=== PATIENT | male | born 1935 | race Caucasian/White ===

== ENCOUNTER → 2021-12-28 | Outpatient (CLI) | payer MEDICARE ==
[~2021-12-28] MED LIST: ACET-2247 PO; ATOR10TA69 PO; BETA1TAB18 PO; CELE200 PO; DILT120C47 PO; FERR-82 PO; FERR324T4 PO; FINA5TAB41 PO; FOLI0.8T3 PO; HYDR12.530 PO; MULT-1289 PO; OLME40TA18 PO; OXYC5 PO; PREG25 PO; REGADENOSON 0.4 MG/5 ML PF SYG IVP SCH; RIVA20TA PO; TERA10CA4 PO
== END | disposition home or self-care (01) ==
LOC: SHCH 08:22
PROVIDERS: ATTEND Internal Medicine Cardiovascular Disease
DX: I10 Essential (primary) hypertension (principal); R94.31 Abnormal electrocardiogram [ECG] [EKG]
CPT/HCPCS: 78452; 93017; 96374; A9500 ×2; J2785

== ENCOUNTER 2023-03-22 17:29 | Observation (INO) | payer MEDICARE ==
[~2023-03-22] VITALS: Ht 182.9 cm; Wt 105.2 kg
[~2023-03-22 17:29] MED LIST changes: -REGADENOSON 0.4 MG/5 ML PF SYG IVP SCH
[2023-03-22] MEDS ORDERED: DILTIAZEM 25MG INJ IVP ONE ×2 (18:00→19:00)
[2023-03-22 18:19] LABS: BASOPHILS % (AUTO) 0.4 % (0.0-5.0); EOSINOPHILS % (AUTO) 2.6 % (0.0-8.0); HEMATOCRIT 37.7 % (42-54); LYMPHOCYTES % (AUTO) 32.9 % (21.0-51.0); MEAN CORPUSCULAR HEMOGLOBIN 30.6 pg (27.0-33.0); MEAN CORPUSCULAR HGB CONC 33.7 g/dL (32.0-36.0); MEAN CORPUSCULAR VOLUME 90.8 fL (79-99); MONOCYTES % (AUTO) 11.4 % (3.0-13.0); NEUTROPHILS % (AUTO) 52.5 % (40.0-77.0); PLATELET COUNT (AUTO) 148 K/uL (130-400); RED BLOOD CELL COUNT(AUTO) 4.15 MIL/uL (4.50-6.20); RED CELL DISTRIBUTION WIDTH 14.4 % (11.0-15.5); WHITE BLOOD COUNT (AUTO) 5.1 K/uL (4.8-10.8)
[2023-03-22 18:36] LABS: ALBUMIN 3.2 g/dL (3.5-5.0); MAGNESIUM 1.9 mg/dL (1.80-2.40); POTASSIUM 4.3 mmol/L (3.5-5.1)
[2023-03-22 18:40] LABS: INR 1.06 (0.85-1.15); PROTHROMBIN TIME 11.5 SEC (9.6-11.6)
[2023-03-22 18:48] LABS: B-TYPE NATRIURETIC PEPTIDE 568 pg/mL (0-100)
[2023-03-22] MEDS ORDERED: ACETAMINOPHEN 325 MG TAB PO PRN (19:00)
[2023-03-22] MEDS ORDERED: IPRATROPIUM 0.5 MG/2.5 ML INH IH PRN (19:00)
[2023-03-22] MEDS ORDERED: HYDRALAZINE 20MG/ML VIAL IV PRN (19:00)
[2023-03-22] MEDS ORDERED: ONDANSETRON 4MG INJ IVP PRN (19:00)
[2023-03-22] MEDS ORDERED: CLONIDINE HCL 0.1 MG TABLET PO PRN (19:00)
[2023-03-22] MEDS ORDERED: LACTULOSE 20 GM/30 ML UDCUP PO PRN (19:00)
[2023-03-22] MEDS ORDERED: DILTIAZEM 125MG+100 ML NS 125 ML IV SCH (19:00)
[2023-03-22 19:24] LABS: PARTIAL THROMBOPLASTIN TIME 31.1 SEC (26.3-35.5)
[2023-03-22] MEDS: DOCUSATE SODIUM 100 MG CAP PO SCH (20:40)
[2023-03-22] MEDS ORDERED: IOHEXOL-350 75 ML VIAL IV ONE (20:46)
[2023-03-22] MEDS ORDERED: TERAZOSIN 5MG CAP PO SCH (21:00)
[2023-03-22] MEDS ORDERED: FINASTERIDE 5 MG TABLET PO SCH (21:00)
[2023-03-22 23:36] VITALS: BP 121/86
[2023-03-22] MEDS ORDERED: HYDR25TA PO (23:44)
[2023-03-22] MEDS ORDERED: MAGN250C PO (23:44)
[2023-03-22] MEDS ORDERED: IRON18TA PO (23:44)
[2023-03-22] MEDS ORDERED: FEXO-263 PO (23:44)
[2023-03-22] MEDS ORDERED: LOSA100T59 PO (23:44)
[2023-03-22] MEDS ORDERED: RIVA20TA PO (23:44)
[2023-03-22] MEDS ORDERED: UBID50TA3 PO (23:44)
[2023-03-23 03:21] VITALS: BP 101/78
[2023-03-23 03:42] LABS: BASOPHILS % (AUTO) 0.8 % (0.0-5.0); EOSINOPHILS % (AUTO) 4.1 % (0.0-8.0); HEMATOCRIT 35.9 % (42-54); LYMPHOCYTES % (AUTO) 33.1 % (21.0-51.0); MEAN CORPUSCULAR HEMOGLOBIN 30.7 pg (27.0-33.0); MEAN CORPUSCULAR HGB CONC 33.7 g/dL (32.0-36.0); MEAN CORPUSCULAR VOLUME 91.1 fL (79-99); MONOCYTES % (AUTO) 9.2 % (3.0-13.0); NEUTROPHILS % (AUTO) 52.6 % (40.0-77.0); PLATELET COUNT (AUTO) 147 K/uL (130-400); RED BLOOD CELL COUNT(AUTO) 3.94 MIL/uL (4.50-6.20); RED CELL DISTRIBUTION WIDTH 14.3 % (11.0-15.5); WHITE BLOOD COUNT (AUTO) 4.9 K/uL (4.8-10.8)
[2023-03-23 04:10] LABS: CREATININE 0.9 mg/dL (0.5-1.5); MAGNESIUM 1.8 mg/dL (1.80-2.40); PHOSPHORUS 2.6 mg/dL (2.5-4.9); POTASSIUM 3.2 mmol/L (3.5-5.1)
[2023-03-23] MEDS ORDERED: POTASSIUM CHLORIDE 10% ELIXIR 20 MEQ/15 ML UDCUP PO PRN (05:00)
[2023-03-23] MEDS ORDERED: POTASSIUM CHLORIDE 20MEQ/100ML 100 ML IV PRN (05:00)
[2023-03-23] MEDS ORDERED: KCL 20 MEQ ERTAB PO ONE (05:02)
[2023-03-23] MEDS: KCL 20 MEQ ERTAB PO PRN ×4 (05:12→12:38)
[2023-03-23] MEDS ORDERED: MAGNESIUM 2GM PREMIX 50ML 50 ML IV ONE (05:35)
[2023-03-23] MEDS ORDERED: MAGNESIUM 2GM PREMIX 50ML 50 ML IV PRN (06:00)
[2023-03-23 07:43] VITALS: BP 138/71
[2023-03-23] MEDS ORDERED: UBIDECARENONE 100 MG PO SCH (08:00)
[2023-03-23] MEDS ORDERED: RIVAROXABAN 20 MG TABLET PO SCH (09:00)
[2023-03-23] MEDS ORDERED: FERROUS SULFATE 325 MG TABLET.DR PO SCH (09:00)
[2023-03-23] MEDS ORDERED: LOSARTAN 100 MG TABLET PO SCH (09:00)
[2023-03-23] MEDS ORDERED: HYDROCHLOROTHIAZIDE 25 MG TABLET PO SCH (09:00)
[2023-03-23] MEDS ORDERED: MULTIVITAMIN WITH MINERALS TABLET PO SCH (09:00)
[2023-03-23] MEDS ORDERED: MAGNESIUM CITRATE AND OXIDE 250 MG PO SCH (09:00)
[2023-03-23] MEDS: DOCUSATE SODIUM 100 MG CAP PO SCH (09:04)
[2023-03-23 12:35] VITALS: BP 136/84
[2023-03-23] MEDS ORDERED: METOPROLOL SUCCINATE 25 MG TAB.SR.24H PO ONE (13:00)
[2023-03-23] MEDS ORDERED: METO-408 PO (13:03)
== END 2023-03-23 15:00 | disposition home or self-care (01) ==
LOC: EDH 17:29 → EDHIP 18:53 → 2DH 22:53
PROVIDERS: ADMIT Internal Medicine Critical Care Medicine; ATTEND Internal Medicine Critical Care Medicine
DX: I48.20 Chronic atrial fibrillation, unspecified (principal); I48.0 Paroxysmal atrial fibrillation; I82.402 Acute embolism and thrombosis of unspecified deep veins of left lower extremity; I10 Essential (primary) hypertension; I31.39 Other pericardial effusion (noninflammatory); I45.4 Nonspecific intraventricular block; E78.5 Hyperlipidemia, unspecified; R07.89 Other chest pain; N40.0 Benign prostatic hyperplasia without lower urinary tract symptoms; Z79.01 Long term (current) use of anticoagulants; Z79.899 Other long term (current) drug therapy; Z85.6 Personal history of leukemia; Z86.718 Personal history of other venous thrombosis and embolism; Z96.641 Presence of right artificial hip joint; Z96.653 Presence of artificial knee joint, bilateral
CPT/HCPCS: 96376; 99285; 83735 ×2; 84484; 80053; 83880; 85025 ×2; 85378; 85610; 85730; 36415 ×2; 71045; 71270; 93005; 96365; 96366; 96368; 84100; 80048; 93306; 93356; G0378 ×19; J3490 ×2; Q9967; J3475

== ENCOUNTER → 2023-04-07 | Outpatient (CLI) | payer MEDICARE ==
[~2023-04-07] MED LIST changes: -ACET-2247 PO; -ATOR10TA69 PO; -CELE200 PO; -DILT120C47 PO; -FERR-82 PO; -FERR324T4 PO; +FEXO-263 PO; -FOLI0.8T3 PO; -HYDR12.530 PO; +HYDR25TA PO; +IRON18TA PO; +LOSA100T59 PO; +MAGN250C PO; +METO-408 PO; -MULT-1289 PO; -OLME40TA18 PO; -OXYC5 PO; -PREG25 PO; +UBID50TA3 PO
[2023-04-07 12:49] LABS: T4 (THYROXINE) 7.8 ug/dL (4.7-13.3); THYROID STIMULATING HORMONE 0.75 uIU/mL (0.36-3.74)
== END | disposition home or self-care (01) ==
LOC: LAB 10:30
PROVIDERS: ATTEND Physician Assistant
DX: I10 Essential (primary) hypertension (principal); I48.0 Paroxysmal atrial fibrillation
CPT/HCPCS: 36415; 84436; 84443; 84479

== ENCOUNTER 2023-07-29 12:04 | Emergency (ER) | payer MEDICARE ==
[~2023-07-29] VITALS: Ht 182.9 cm; Wt 99.8 kg
[2023-07-29] MEDS ORDERED: SODI22SP NS (13:48)
[2023-07-29] MEDS ORDERED: CEPH500B PO (13:50)
[2023-07-29] MEDS: OXYMETAZOLINE HCL SPRAY 15 ML BOTTLE EN STA (14:36)
[2023-07-29] MEDS: DIPH,PERTUSS(ACELL),TET VAC/PF 0.5 ML VIAL IM ONE (14:42)
[2023-07-29 15:10] VITALS: BP 123/78; PULSE 78; RESP 18; O2SAT 98
== END 2023-07-29 15:14 | disposition home or self-care (01) ==
LOC: EDH 12:04
DX: S52.502A Unspecified fracture of the lower end of left radius, initial encounter for closed fracture (principal); S02.2XXA Fracture of nasal bones, initial encounter for closed fracture; W01.10XA Fall on same level from slipping, tripping and stumbling with subsequent striking against unspecified object, initial encounter; I10 Essential (primary) hypertension; Z79.01 Long term (current) use of anticoagulants; Z79.899 Other long term (current) drug therapy; Y93.89 Activity, other specified; Y92.89 Other specified places as the place of occurrence of the external cause; Y99.8 Other external cause status
CPT/HCPCS: 70450; 70486; 72125; 73110; 73130; 73562; 90471; 90715; 96372

== ENCOUNTER 2023-09-13 09:32 | Emergency (ER) | payer MEDICARE ==
[~2023-09-13] VITALS: Ht 182.9 cm; Wt 99.8 kg
[~2023-09-13 09:32] MED LIST changes: +CEPH500B PO; +SODI22SP NS
[2023-09-13 10:25] LABS: BASOPHILS # (AUTO) 0.04 K/uL (0.00-0.20); BASOPHILS % (AUTO) 0.9 % (0.0-5.0); EOSINOPHILS # (AUTO) 0.11 K/uL (0.00-0.70); EOSINOPHILS % (AUTO) 2.4 % (0.0-8.0); HEMATOCRIT 37.9 % (42-54); LYMPHOCYTES % (AUTO) 21.6 % (21.0-51.0); MEAN CORPUSCULAR HEMOGLOBIN 30.6 pg (27.0-33.0); MEAN CORPUSCULAR VOLUME 92.9 fL (79-99); MONOCYTES # (AUTO) 0.4 K/uL (0.1-1.0); MONOCYTES % (AUTO) 9.3 % (3.0-13.0); NEUTROPHILS # (AUTO) 3.1 K/uL (1.8-7.7); NEUTROPHILS % (AUTO) 65.8 % (40.0-77.0); PLATELET COUNT (AUTO) 141 K/uL (130-400); RED BLOOD CELL COUNT(AUTO) 4.08 MIL/uL (4.50-6.20); WHITE BLOOD COUNT (AUTO) 4.6 K/uL (4.8-10.8)
[2023-09-13 10:45] LABS: POTASSIUM 3.6 mmol/L (3.5-5.1)
[2023-09-13 10:50] LABS: ALBUMIN 3.3 g/dL (3.5-5.0); BILIRUBIN,TOTAL 0.6 mg/dL (0.2-1.0); TOTAL PROTEIN, SERUM 6.6 g/dL (6.0-8.3)
[2023-09-13 11:23] LABS: ADD UA MICROSCOPIC YES
[2023-09-13 11:27] LABS: MAGNESIUM 1.6 mg/dL (1.80-2.40)
[2023-09-13 11:31] LABS: APPEARANCE,URINE CLEAR (CLEAR); BILIRUBIN,URINE NEGATIVE (NEGATIVE); COLOR,URINE LIGHT-YELLOW (YELLOW); GLUCOSE, URINE (UA) NEGATIVE (NEGATIVE); KETONES,URINE NEGATIVE (NEGATIVE); LEUKOCYTE ESTERASE ,URINE NEGATIVE Leu/uL (NEGATIVE); MUCUS,URINE RARE LPF (None Seen); NITRATE,URINE NEGATIVE (NEGATIVE); OCCULT BLOOD,URINE NEGATIVE (NEGATIVE); PROTEIN,URINE NEGATIVE (NEGATIVE); RBC,URINE 0-1 /HPF (0-1); UROBILINOGEN,URINE 0.2 mg/dL (0.2-1.0); WBC,URINE 0-1 /HPF (0-1)
[2023-09-13 11:32] LABS: THYROID STIMULATING HORMONE 0.64 uIU/mL (0.36-3.74)
[2023-09-13 12:41] VITALS: BP 154/79; PULSE 52; RESP 18; O2SAT 96
== END 2023-09-13 13:30 | disposition home or self-care (01) ==
LOC: EDH 09:32
DX: R53.1 Weakness (principal); I16.0 Hypertensive urgency; I10 Essential (primary) hypertension; Z79.899 Other long term (current) drug therapy
CPT/HCPCS: 36415; 80053; 81001; 83735; 84443; 84484; 85025; 93005

== ENCOUNTER → 2023-09-21 | Outpatient (CLI) | payer MEDICARE ==
[2023-09-21 16:37] LABS: MAGNESIUM 1.8 mg/dL (1.80-2.40)
== END | disposition home or self-care (01) ==
LOC: LAB 09-14 09:47
PROVIDERS: ATTEND Physician Assistant
DX: R00.1 Bradycardia, unspecified (principal)
CPT/HCPCS: 36415; 80048; 83735

== ENCOUNTER → 2023-10-24 | Outpatient (CLI) | payer MEDICARE ==
[2023-10-24 16:40] LABS: MAGNESIUM 2.1 mg/dL (1.80-2.40); POTASSIUM 4.3 mmol/L (3.5-5.1)
== END | disposition home or self-care (01) ==
LOC: LAB 13:00
PROVIDERS: ATTEND Physician Assistant
DX: I48.0 Paroxysmal atrial fibrillation (principal); I47.10 Supraventricular tachycardia, unspecified
CPT/HCPCS: 36415; 80048; 83735

== ENCOUNTER → 2023-12-30 | Outpatient (CLI) | payer MEDICARE ==
[2023-12-30] MEDS: REGADENOSON 0.4 MG/5 ML PF SYG IVP ONE (11:03)
== END | disposition home or self-care (01) ==
LOC: SHCH 08:21
PROVIDERS: ATTEND Internal Medicine Cardiovascular Disease
DX: I48.0 Paroxysmal atrial fibrillation (principal); I49.5 Sick sinus syndrome; I47.10 Supraventricular tachycardia, unspecified; I11.9 Hypertensive heart disease without heart failure; Z79.899 Other long term (current) drug therapy
CPT/HCPCS: 78452; 96374; 93017; J2785; A9500 ×2

== ENCOUNTER 2025-07-01 07:57 | Observation (INO) | payer MEDICARE ==
[~2025-07-01] VITALS: Ht 182.9 cm; Wt 102.8 kg
[~2025-07-01 07:57] MED LIST changes: -FEXO-263 PO; +FEXO-402 PO
--- NOTE | 2025-07-01 08:34 | EKG ---
[facility] Test Date: 2025-07-01 Test Time: 08:31:31 Pat Name: TALYA PEREZ Department: EDH Room: ED Gender: M Supervisor Shearing: [id number] : [id number] Requested By: SANJEEV MORENO Order Number: [id number] Reading MD: Pop Sims Measurements Intervals Armstrong Rate: 111 P: 0 MO: 0 QRS: -59 QRSD: 114 T: 90 QT: 344 QTc: 469 Interpretive Statements Atrial fibrillation Ventricular premature complex Left anterior fascicular block LVH with secondary repolarization abnormality Anterior Q waves, possibly due to LVH Electronically Signed On 07-01-2025 18:38:26 CDT by Pop Sims Please click the below link to view image of tracing.
[2025-07-01 08:55] LABS: IMMATURE GRANULOCYTE ABSOLUTE 0.00 K/uL (0-1); NUCLEATED RED BLOOD CELLS 0.0 % (0.0-0.19); PLATELET COUNT (AUTO) 175 K/uL (130-400); RED BLOOD CELL COUNT(AUTO) 4.33 MIL/uL (4.50-6.20); RED CELL DISTRIBUTION WIDTH 14.7 % (11.0-15.5); WHITE BLOOD COUNT (AUTO) 4.8 K/uL (4.8-10.8)
[2025-07-01 09:00] LABS: CREATININE 0.8 mg/dL (0.5-1.3); GLOMERULAR FILTR. RATE CALC 86.0 mL/min (>90); GLUCOSE,RANDOM 95.0 mg/dL (70-105); SODIUM SERUM 142.0 mmol/L (136-145); UREA NITROGEN, BLOOD 13.0 mg/dL (7-18)
[2025-07-01 09:02] LABS: APPEARANCE,URINE CLEAR (CLEAR); GLUCOSE, URINE (UA) NEGATIVE (NEGATIVE); LEUKOCYTE ESTERASE ,URINE NEGATIVE Leu/uL (NEGATIVE); NITRATE,URINE NEGATIVE (NEGATIVE); OCCULT BLOOD,URINE NEGATIVE (NEGATIVE)
--- NOTE | 2025-07-01 09:26 | ERN ---
General Chief Complaint: Hypertension Stated Complaint: ELEVATED BP Time Seen by MD: 07:59 Source: patient History of Present Illness Initial Comments Patient is a an 89-year-old male coming in complaining of elevated blood pressure. Per patient he does has a history of hypertension but noticed his blood pressure higher than normal. Came in to be evaluated no other current co mplaint. Allergies: Coded Allergies: No Known Drug Allergies (Unverified Allergy, Unknown, 06/09/15) Home Meds Active Scripts Cephalexin Monohydrate (Keflex) 500 Mg Cap, 500 MG PO TID for 7 Days, #21 CAP Prov:SANJEEV MORENO MD 07/29/23 Sodium Chloride/Aloe Vera (Campbell Saline Nasal Gel Purcell) 22 Ml Purcell, 22 ML NS BID for 7 Days, #60 SPRAY Prov:SANJEEV MORENO MD 07/29/23 Metoprolol Succinate (Metoprolol Succinate) 25 Mg Tab.er.24h, 25 MG PO DAILY, #30 TAB 3 Refills Prov:SELAM FERNÁNDEZ MD 03/23/23 Reported Medications Hydrochlorothiazide (Hydrochlorothiazide) 25 Mg Tablet, 25 MG PO DAILY, TAB 03/22/23 Magnesium Citrate and Oxide (Magnesium) 250 Mg Capsule, 250 MG PO DAILY, CAP 03/22/23 Losartan Potassium (Losartan Potassium) 100 Mg Tablet, 100 MG PO DAILY, TAB 03/22/23 Fexofenadine HCl (Fexofenadine HCl) 180 Mg Tablet, 180 MG PO DAILY PRN for NASAL CONGESTION, TAB 03/22/23 Ubidecarenone (Coq10) 50 Mg Tab.chew, 100 MG PO DAILYBKFST, TAB.CHEW 03/22/23 Rivaroxaban (Xarelto) 20 Mg Tablet, 20 MG PO HS, TAB 03/22/23 Iron (Iron) 18 Mg Tablet, 27 MG PO DAILY, TAB 03/22/23 Vit A,C & E/Lutein/Minerals (Ocuvite Tablet) 1 Each Tablet, 1 EACH PO DAILY, TAB 06/11/15 Finasteride (Finasteride) 5 Mg Tablet, 5 MG PO DAILY, TAB 06/11/15 Terazosin HCl (Terazosin HCl) 10 Mg Capsule, 10 MG PO DAILY, CAP 06/11/15 Past Medical History Past Medical History: Cancer, Heart Disease, Hypertension Medical History Other: HX OF LEUKEMIA Past Surgical History: Other Surgical History Other: KNEE AND HIP Social History Social History: Negative ROS Dictation CONSTITUTIONAL: No chills, no fever, no weakness, no diaphoresis, no malaise. HEAD/FACE: No signs of trauma. EENT: No eye pain, no blurred vision, no tearing, no double vision, no ear pain, no ear discharge, no nose pain, no nasal congestion, no throat pain, no throat swelling, no mouth pain. RESPIRATORY: No cough, no orthopnea, no SOB, no stridor, no wheezing. CARDIOVASCULAR: No chest pain, no edema, no palpitations, no syncope. GASTROINTESTINAL/ABDOMINAL: No abdominal pain, no constipation, no diarrhea, no nausea, no vomiting. GENITOURINARY: No abnormal discharge, no dysuria, no frequent urination, no hematuria. No complaints of pain in the genitals. MUSCULOSKELETAL: No back pain, no gout, no joint pain, no joint swelling, no muscle pain, no muscle stiffness, no neck pain. INTEGUMENTARY: No change in color, no change in hair/nails, no dryness, no lesion, no lumps, no rash. NEUROLOGICAL/PSYCH: No anxiety, not depressed, no emotional problem, no headache, no numbness, no pre-existing deficit, no history of seizures, no tremors, no weakness. HEMATOLOGIC/LYMPHATIC: Not anemic, no history of blood clots, no apparent bleeding, no bruising, glands not swollen. All Systems Negative, Except as Noted. Physical Exam Physical Exam Dictation VITAL SIGNS: Reviewed. GENERAL APPEARANCE: Alert, oriented x3, no acute distress, obese. HEAD AND FACE: Non-traumatic. EYES: PERRL, pink conjunctivas, eyelid no trauma, anterior chamber clear. EARS: Pinnas intact and no signs of trauma or erythema. Ear canals clear and no discharge. TMs no erythema. NOSE: No discharge, no bleeding. OROPHARYNX: Mouth normal, teeth no caries, tongue pink. Pharynx clear, no erythema. Tonsils no exudates, no abscesses noted. Mucous membrane moist. NECK: Supple, non-tender, no thyromegaly, no masses, no JVD, no bruits. BREAST: Deferred. CHEST: No tenderness, no crepitus, no paradoxical movement, no retractions. LUNGS: Clear, well-ventilated, symmetric, no rales, no wheezing, no rhonchi, no stridor, good breath sounds bilaterally. HEART: Regular rate, regular rhythm, no murmur, no gallops. VASCULAR: No peripheral edema. ABDOMEN: Soft, positive bowel sounds, nondistended, no guarding, nontender, no rebound, no masses no hepatomegaly, no splenomegaly, no Beasley's sign, no hernias. RECTAL: Deferred. GENITAL: Deferred. NEUROLOGICAL: Normal speech, gross motor function intact, gross sensory function intact. MUSCULOSKELETAL: Neck nontender, full range of motion, back nontender, full range of motion. EXTREMITIES: Nontender, full range of motion. SKIN: Color pink, dry, no turgor, no rash, no lacerations, no abrasions, no contusions. LYMPHATICS: Deferred. Results Laboratory and Microbiology Lab and Micro Result Laboratory Tests Test 07/01/25 08:32 07/01/25 08:44 Urine Color LIGHT-YELLOW (YELLOW) Urine Appearance CLEAR (CLEAR) Urine pH 6.5 (5.0-8.0) Urine Specific [place] 1.005 (1.001-1.031) Urine Protein NEGATIVE mg/dL (NEGATIVE) Urine Glucose (UA) NEGATIVE mg/dL (NEGATIVE) Urine Ketones NEGATIVE mg/dL (NEGATIVE) Urine Occult Blood NEGATIVE (NEGATIVE) Urine Nitrate NEGATIVE (NEGATIVE) Urine Bilirubin NEGATIVE mg/dL (NEGATIVE) Urine Urobilinogen 0.2 mg/dL (0.2-1.0) Urine Leukocyte Esterase NEGATIVE Petr/uL Urine RBC 0-1 /HPF (0-1) Urine WBC 0-1 /HPF (0-1) Urine Bacteria None /HPF (None Seen) White Blood Count 4.8 K/uL (4.8-10.8) Red Blood Count 4.33 MIL/uL (4.50-6.20) L Hemoglobin 12.8 g/dL (14.0-18.0) L Hematocrit 39.4 % (42-54) L Mean Corpuscular Volume 91.0 fL (79-99) Mean Corpuscular Hemoglobin 29.6 pg (27.0-33.0) Mean Corpuscular Hemoglobin Concent 32.5 g/dL (32.0-36.0) Red Cell Distribution Width 14.7 % (11.0-15.5) Platelet Count 175 K/uL (130-400) Mean Platelet Volume 10.4 fL (7.5-10.5) Immature Granulocyte % (Auto) 0.0 % (0-1) Neutrophils (%) (Auto) 50.4 % (40.0-77.0) Lymphocytes (%) (Auto) 34.5 % (21.0-51.0) Monocytes (%) (Auto) 9.1 % (3.0-13.0) Eosinophils (%) (Auto) 5.2 % (0.0-8.0) Basophils (%) (Auto) 0.8 % (0.0-5.0) Neutrophils # (Auto) 2.4 K/uL (1.8-7.7) Lymphocytes # (Auto) 1.7 K/uL (1.0-4.8) Monocytes # (Auto) 0.4 K/uL (0.1-1.0) Eosinophils # (Auto) 0.25 K/uL (0.00-0.70) Basophils # (Auto) 0.04 K/uL (0.00-0.20) Absolute Immature Granulocyte (auto 0.00 K/uL (0-1) Nucleated Red Blood Cells 0.0 % (0.0-0.19) Sodium Level 142 mmol/L (136-145) Potassium Level 4.2 mmol/L (3.5-5.1) Chloride Level 106 mmol/L (101-111) Carbon Dioxide Level 30 mmol/L (21-32) Blood Urea Nitrogen 13 mg/dL (7-18) Creatinine 0.8 mg/dL (0.5-1.3) Glomerular Filtration Rate Calc 86 mL/min (>90) Random Glucose 95 mg/dL (70-105) Total Calcium 10.5 mg/dL (8.5-10.1) H Troponin I High Sensitivity 29 ng/L (4-75) Labs Reviewed?: Yes EKG/XRAY/US/CT/MRI EKG Comment 07/01/2025 time 8:31 a.m. Ventricular rate [address] wave elevation or depression MDM MDM: Differential diagnosis: New Onset AFib, hypertension, Rationale: Tests considered and ordered secondary to shared decision making include: labs, ECG and radiology Previous outside records reviewed: Old ER visits. Risk of complication and/or morbidity or mortality of patient management: None Medications-Per medication reconciliation Need for hospitalization: Patient does meet criteria for hospitalization. Need for emergency major/minor surgery: No There are no social concerns with this patient. Prescription drug management Prescriptions will include symptomatic care Patient's prior external medical records from other ER visits were reviewed by me as indicated. Prior testing and results from previous visits were reviewed. Prior tests were taken into account with medical decision making and resource utilization, independent historian/historians were used to obtain complete medical history. I independently interpreted the test that were performed, results were reviewed by me and considered findings on radiology if ordered. Medical management and examination interpretation discussions were had by me with other qualified healthcare professionals as indicated for the patient's care. Admitted under the care of hospitalist group for ongoing management ED Course Orders Procedure Category Date Status Time Cbc With Differential LAB 07/01/25 Complete 08:04 Basic Metabolic Panel LAB 07/01/25 Complete 08:04 Urinalysis LAB 07/01/25 Complete W/Microscopic 08:04 12 Lead Ekg Tracing- EKG 07/01/25 Complete Technical 08:04 Troponin I High LAB 07/01/25 Complete Sensitivity 08:04 Vital Signs Date Time Temp Pulse Resp B/P (MAP) Pulse Ox O2 Delivery O2 Flow Rate FiO2 07/01/25 08:02 98.8 55 16 150/96 96 Room Air* 0 21 07/01/25 07:59 98.8 55 16 150/96 96 Room Air 0 DX & DISP Disposition: Inpatient Decision to Admit Time: 10:14 Departure Impression: Primary Impression: Atrial fibrillation with RVR Condition: Stable Referrals: VARGAS LOZADA (PCP) SANJEEV MORENO MD Jul 01, 2025 09:26
--- NOTE | 2025-07-01 11:11 | HP ---
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 Patient states he noted that he was having palpitations which started today. He felt his heart was beating fast. He denied any chest pain with palpitations or with exertion. Denied any fever, chills, cough, shortness breath, abdominal pain, nausea and vomiting. Patient's daughter states that they have noticed that his blood pressure has been running high recently. His systolics have been noted to run between 150s to 180s. Patient states he has been compliant with his home medications. He is noted to be on telmisartan, clonidine for blood pressure. Additionally he has also noted on amlodipine but patient is unsure if he is still taking that medication. He takes propafenone for atrial fibrillation. He was previously on metoprolol but he is currently not taking the medication. He follows Dr. Galvin as outpatient. Patient denied any falls, syncopal episode. Daughter has noted a lower extremity swelling bilaterally. Secondary to non improving symptoms patient thereafter came to the hospital for further evaluation. Patient took his antihypertensives in the morning and his home dose Xarelto. Labs in the ED were notable for white count of 4.8, hemoglobin was 12.8, platelet count was 175 K, sodium was 142, potassium was 4.2, creatinine was 0.8, troponin was negative x1 On presentation to the ED patient's blood pressure was 150/96, temperature was 98.8, heart rate was 55. Patient had a EKG done which showed atrial fibrillation with noted to be 111. When seen at bedside patient's heart rate had improved in the 50s. REVIEW OF SYSTEMS CONSTITUTIONAL: Denies fevers, chills, or night sweats. No unintentional weight loss reported. NEUROLOGICAL: Denies headache, amaurosis fugax, motor weakness, sensory deficit, vertigo/spinning sensation, gait abnormalities, or tremors. ENT: No hearing loss, otalgia, otorrhea, rhinitis, rhinorrhea, hoarseness, or sore throat. CARDIOVASCULAR: Denied any chest pain. Positive for palpitations. Denied any orthopnea, PND PULMONARY: Denies any shortness of breath, cough, phlegm/sputum, hemoptysis, pleuritic chest pain. SLEEP: Denies morning headaches, daytime somnolence or napping. Denies difficulty falling asleep, staying asleep, waking from sleep. Denies knowledge of snoring. GASTROINTESTINAL: Denies any type of dysphagia to either liquids or solids. Denies nausea, vomiting, pyrosis, early satiety, abdominal pain, diarrhea, constipation, or changes in stool consistency or caliber. Denies coffee-ground emesis, hematemesis, hematochezia, or melanotic stools. GENITOURINARY: Denies frequency, urgency, nocturia, hematuria or incontinence (Storage/Irritative symptoms.) Low urinary stream, straining to void, urinary intermittency or hesitancy, splitting of the voiding stream, terminal dribbling. ENDOCRINOLOGIC: Denies polyuria, polydipsia, polyphagia or heat/cold intolerances. HEMATOLOGIC: Denies thrombophilia/previous clots, or coagulopathy/bleeding disorders. ONCOLOGIC: Denies personal history of malignancy. DERMATOLOGIC: Denies rashes or pruritus. PSYCHIATRIC: Denies any suicidal or homicidal ideation. Denies hallucinations. PAST MEDICAL HISTORY: Hypertension, hyperlipidemia, history of atrial fibrillation, history of DVT, history of leukemia PAST SURGICAL HISTORY: History of knee surgery PAST SOCIAL HISTORY: Denied any smoking, alcohol, drug FAMILY HISTORY: Denied any pertinent family history Coded Allergies: No Known Drug Allergies (Unverified Allergy, Unknown, 06/09/15) PHYSICAL EXAM GENERAL APPEARANCE: The patient is awake, alert, and oriented, in no acute cardiopulmonary distress. NEUROLOGICAL: Cranial nerves II-XII grossly intact. Motor is 5/5 in bilateral upper and lower extremities proximal to distal. No sensory deficits. HEENT: Face is symmetric. Pupils are equal and reactive. Extraocular movements are intact. NECK: Supple. No JVD. No thyromegaly. No submental, submandibular, pre- /postauricular, occipital or supraclavicular lymphadenopathy. CHEST: Normal chest expansion. No Telemetry. LUNGS: Absence of any rales, rhonchi or any wheezing. CARDIOVASCULAR: Regular. S1 and S2 normal. No appreciable rubs, murmurs or gallops. ABDOMEN: Soft, nontender, and nondistended. There is no rebound, voluntary guarding, or rigidity. : Deferred. No [facility]. EXTREMITIES: 1+ lower extremity edema noted bilateral and not cyanotic. No clubbing. Good capillary refill. SKIN: No skin breakdown. Vital Sign (Last 24 Hours) 07/01/25 08:02 Temp 98.8 Pulse 55 Resp 16 B/P (MAP) 150/96 Pulse Ox 96 O2 Delivery Room Air* O2 Flow Rate 0 FiO2 21 LABS: Laboratory: Test 07/01/25 08:44 07/01/25 08:32 Range/Units White Blood Count 4.8 4.8-10.8 K/uL Red Blood Count 4.33 L 4.50-6.20 MIL/uL Hemoglobin 12.8 L 14.0-18.0 g/dL Hematocrit 39.4 L 42-54 % Mean Corpuscular Volume 91.0 79-99 fL Mean Corpuscular Hemoglobin 29.6 27.0-33.0 pg Mean Corpuscular Hemoglobin Concent 32.5 32.0-36.0 g/dL Red Cell Distribution Width 14.7 11.0-15.5 % Platelet Count 175 130-400 K/uL Mean Platelet Volume 10.4 7.5-10.5 fL Immature Granulocyte % (Auto) 0.0 0-1 % Neutrophils (%) (Auto) 50.4 40.0-77.0 % Lymphocytes (%) (Auto) 34.5 21.0-51.0 % Monocytes (%) (Auto) 9.1 3.0-13.0 % Eosinophils (%) (Auto) 5.2 0.0-8.0 % Basophils (%) (Auto) 0.8 0.0-5.0 % Neutrophils # (Auto) 2.4 1.8-7.7 K/uL Lymphocytes # (Auto) 1.7 1.0-4.8 K/uL Monocytes # (Auto) 0.4 0.1-1.0 K/uL Eosinophils # (Auto) 0.25 0.00-0.70 K/uL Basophils # (Auto) 0.04 0.00-0.20 K/uL Absolute Immature Granulocyte (auto 0.00 0-1 K/uL Nucleated Red Blood Cells 0.0 0.0-0.19 % Sodium Level 142 136-145 mmol/L Potassium Level 4.2 3.5-5.1 mmol/L Chloride Level 106 101-111 mmol/L Carbon Dioxide Level 30 21-32 mmol/L Blood Urea Nitrogen 13 7-18 mg/dL Creatinine 0.8 0.5-1.3 mg/dL Glomerular Filtration Rate Calc 86 >90 mL/min Random Glucose 95 70-105 mg/dL Total Calcium 10.5 H 8.5-10.1 mg/dL Troponin I High Sensitivity 29 4-75 ng/L Urine Color LIGHT-YELLOW YELLOW Urine Appearance CLEAR CLEAR Urine pH 6.5 5.0-8.0 Urine Specific [place] 1.005 1.001-1.031 Urine Protein NEGATIVE NEGATIVE mg/dL Urine Glucose (UA) NEGATIVE NEGATIVE mg/dL Urine Ketones NEGATIVE NEGATIVE mg/dL Urine Occult Blood NEGATIVE NEGATIVE Urine Nitrate NEGATIVE NEGATIVE Urine Bilirubin NEGATIVE NEGATIVE mg/dL Urine Urobilinogen 0.2 0.2-1.0 mg/dL Urine Leukocyte Esterase NEGATIVE NEGATIVE Petr/uL Urine RBC 0-1 0-1 /HPF Urine WBC 0-1 0-1 /HPF Urine Bacteria None None Seen /HPF DIAGNOSTICS / RADIOLOGY: [ ] ASSESSMENT: Paroxysmal AFib with RVR POA Hypertension Hyperlipidemia History of chronic anticoagulation with Xarelto History of leukemia PLAN: - patient to be admitted to medical-surgical unit with telemetry -in reference to atrial fibrillation. Patient's heart rate is currently controlled. Continue with home propafenone. If heart rate remains elevated we will consider addition of metoprolol. Obtain echocardiogram. We will kindly request Cardiology consultation. - in reference to hypertension. Continue with home antihypertensive. Patient is currently asymptomatic. Start hydralazine 10 mg IV q.6 hours PRN for systolic blood pressure greater than 180 - obtain a venous Doppler of the lower extremity - Check TSH, A1c -further orders per hospitalization course Advanced Care Planning Which of the following were discussed: Hospice care: Yes __ No x_ Therapeutic options: Yes __ No __ Advance directives: Yes __ No __ Other discussions: Discussed with who?: patient (Patient, family or surrogates) Voluntary nature of this service was explained to the patient? Yes _x_ No __ Amount of time spent: 20 minutes DANO Ponce MD, MD Jul 01, 2025 11:11
[2025-07-01] MEDS ORDERED: PoTASSium chloRIDE 20MEQ ER 20 MEQ ERTAB PO PRN (11:30)
[2025-07-01] MEDS ORDERED: PoTASSium chl 10% ELIXIR 20MEQ 20 MEQ/15 ML UDCUP PO PRN (11:30)
[2025-07-01] MEDS ORDERED: MAGNESIUM 2GM PREMIX 50ML 50 ML IV PRN (11:30)
[2025-07-01 12:18] LABS: INR 1.38 (0.85-1.15)
--- NOTE | 2025-07-01 13:20 | HMCIMG ---
EXAM: CR Chest, 1 View. CLINICAL HISTORY: sob COMPARISON: None provided. FINDINGS: Right Mediport catheter tip projects at the superior atriocaval junction. LUNGS: There is no mass, infiltrate, or acute pulmonary abnormality. PLEURAL SPACES: No pleural effusion or pneumothorax. MEDIASTINUM: Cardiac size and mediastinal contours within normal limits. BONES: No acute osseous abnormality. IMPRESSION: No acute cardiopulmonary pathology is evident. /[place]
[2025-07-01] MEDS ORDERED: FOLI1 PO (13:24)
[2025-07-01] MEDS ORDERED: CLON0.1T PO (13:36)
[2025-07-01] MEDS ORDERED: PROP225T8 PO (13:36)
[2025-07-01] MEDS ORDERED: VIT1TAB.13 PO (13:36)
[2025-07-01] MEDS ORDERED: MULT-1258 PO (13:36)
[2025-07-01] MEDS ORDERED: TELM80TA10 PO (13:36)
[2025-07-01] MEDS ORDERED: CHOL500045 PO (13:39)
[2025-07-01] MEDS ORDERED: VITA1CAP PO (13:39)
--- NOTE | 2025-07-01 13:43 | HMCIMG ---
EXAM: US for Deep Venous Thrombosis, bilateral Lower Extremity. CLINICAL HISTORY: Leg Pain and Swelling TECHNIQUE: Real-time ultrasound scan of the veins of the bilateral lower extremity with color Doppler flow, spectral waveform analysis and compression. COMPARISON: Study dated 12/27/16. FINDINGS: DEEP VEINS: The common femoral, superficial femoral, and popliteal veins are echolucent and compressible. There is normal color Doppler flow throughout. The visualized calf veins appear patent. SOFT TISSUES: No popliteal fossa cyst or other abnormalities. IMPRESSION: 1. No deep venous thrombosis in bilateral lower extremities. /[place]
--- NOTE | 2025-07-01 15:14 | CONS ---
[facility] CARDIOLOGY CONSULTATION REPORT Cardiology consultation note dictated for Pop Sims MD Primary mult au matic operator: Jesus Galvin MD Date Patient Seen: Jul 01, 2025 Requesting Physician: Silvia Chun MD Reason for Consultation: Atrial fibrillation with rapid ventricular response History of Present Illness: This is an 85-year-old male with a past medical history of hypertension, paroxysmal atrial fibrillation on chronic anticoagulation with Xarelto with previous cardiac ablation, symptomatic bradycardia, normal Lexiscan Cardiolite stress test in 12/2023, 2D echocardiogram on 03/22/2023 with an EF of 50-55%, stage II diastolic dysfunction, moderate MR, history of left lower extremity DVT in 01/2015, RLS, and glaucoma who presented to the ED with complaints of high blood pressure (SBP 150s to 180s) and palpitations for approximately 3 days. Cardiology has been consulted for atrial fibrillation with rapid ventricular res ponse. The patient reported a 3 day onset of general body weakness and elevated blood pressure. EKG on admission demonstrated atrial fibrillation with a heart rate of 111 beats per minute. Bedside telemetry currently demonstrating normal sinus rhythm with a heart rate of 62 beats per minute. Blood pressure 154/67 mmHg. Upon further investigation, the patient may have missed approximately 3-4 days of the morning dose of propafenone as they were not in his medication box for this week, but were in the PM boxes for this week. The daughter at bedside has since failed the remaining week with a.m. propafenone. Past Medical History: As per HPI and summarized below Past Surgical History: Refer to chart Family History: Noncontributory Social History: The patient lives with family. Habits: The patient denies alcohol, tobacco, or illicit drug use. Home Meds: Propafenone to 25 mg b.i.d. Xarelto 20 mg q.h.s. Clonidine 0.1 mg b.i.d. Telmisartan 80 mg daily Finasteride 5 mg daily Terazosin 10 mg daily Folic acid 1 mg daily Multivitamin daily PreserVision a reds 1 tablet b.i.d. Current Meds: Medications Dose Ordered Sig/Ankush Start Time Stop Time Status Last Admin Famotidine 20 mg BID 07/01/25 21:00 07/31/25 20:59 Acetaminophen 500 mg Q6H PRN 07/01/25 11:30 07/31/25 11:29 Hydralazine HCl 10 mg Q6H PRN 07/01/25 11:30 07/31/25 11:29 Potassium Chloride 100 ml @ 100 mls/hr AD PRN 07/01/25 11:30 07/31/25 11:29 Potassium Chloride 20 meq AD PRN 07/01/25 11:30 07/31/25 11:29 Potassium Chloride 20 meq AD PRN 07/01/25 11:30 07/31/25 11:29 Magnesium Sulfate 50 ml @ 0 mls/hr PROTOCOL PRN 07/01/25 11:30 07/31/25 11:29 Clonidine HCl 0.1 mg BID 07/01/25 21:00 07/31/25 20:59 Finasteride 5 mg DAILY 07/02/25 09:00 08/01/25 08:59 Folic Acid 1 mg DAILY 07/02/25 09:00 08/01/25 08:59 Propafenone HCl 225 mg BID 07/01/25 21:00 07/31/25 20:59 Losartan Potassium 100 mg DAILY 07/02/25 09:00 08/01/25 08:59 Terazosin HCl 10 mg DAILY 07/02/25 09:00 08/01/25 08:59 Review of Systems: CONST: Admits to general body weakness. Denies fever. EYES: No recent vision problems. ENT: No congestion, ear pain, or sore throat. C/V: No chest pain, palpitations, or edema. RESP: No cough, congestion, wheezing or shortness of breath. GI: No abdominal pain, nausea, vomiting, constipation, or diarrhea. : No incontinence or dysuria. SKIN: No rash. NEURO: No headache, focal numbness or weakness, dizziness, or seizures. PSYCH: No depression or anxiety. HEME: No abnormal bruising or bleeding. LYMPH: No swollen glands. Physical Examination: GENERAL: No acute distress. HEAD: Normal with no signs of head trauma. EYES: PERRLA, EOMI, conjunctiva and sclera normal. ENT: Hearing grossly intact, normal oropharynx. NECK: Supple without JVD. There is no tenderness, lymphadenopathy, or masses. No thyromegaly. Normal carotid upstrokes without bruits. LUNGS: Clear breath sounds bilaterally. No wheezes, or rhonchi. HEART: Normal rate and rhythm. Normal S1 and S2 without murmurs, gallop or rub. VASC: Peripheral pulses +2 bilaterally. ABD: Bowel sounds normal, soft, nontender, no masses, no organomegaly. No audible bruits. : Not examined LYMPH: No lymphadenopathy noted. EXT: No clubbing, cyanosis or edema. SKIN: No rashes or lesions noted. NEURO: Awake, alert, and oriented x3. No focal sensory or strength deficits noted. Vital Signs (last 8hr) Date Time Temp Pulse Resp B/P (MAP) Pulse Ox O2 Delivery O2 Flow Rate FiO2 07/01/25 08:02 98.8 55 16 150/96 96 Room Air* 0 21 07/01/25 07:59 98.8 55 16 150/96 96 Room Air 0 Laboratory: Hematology Labs: Test 07/01/25 08:44 Range/Units White Blood Count 4.8 4.8-10.8 K/uL Red Blood Count 4.33 L 4.50-6.20 MIL/uL Hemoglobin 12.8 L 14.0-18.0 g/dL Hematocrit 39.4 L 42-54 % Mean Corpuscular Volume 91.0 79-99 fL Mean Corpuscular Hemoglobin 29.6 27.0-33.0 pg Mean Corpuscular Hemoglobin Concent 32.5 32.0-36.0 g/dL Red Cell Distribution Width 14.7 11.0-15.5 % Platelet Count 175 130-400 K/uL Mean Platelet Volume 10.4 7.5-10.5 fL Immature Granulocyte % (Auto) 0.0 0-1 % Neutrophils (%) (Auto) 50.4 40.0-77.0 % Lymphocytes (%) (Auto) 34.5 21.0-51.0 % Monocytes (%) (Auto) 9.1 3.0-13.0 % Eosinophils (%) (Auto) 5.2 0.0-8.0 % Basophils (%) (Auto) 0.8 0.0-5.0 % Neutrophils # (Auto) 2.4 1.8-7.7 K/uL Lymphocytes # (Auto) 1.7 1.0-4.8 K/uL Monocytes # (Auto) 0.4 0.1-1.0 K/uL Eosinophils # (Auto) 0.25 0.00-0.70 K/uL Basophils # (Auto) 0.04 0.00-0.20 K/uL Absolute Immature Granulocyte (auto 0.00 0-1 K/uL Nucleated Red Blood Cells 0.0 0.0-0.19 % Chemistry Labs: Test 07/01/25 08:44 Range/Units Sodium Level 142 136-145 mmol/L Potassium Level 4.2 3.5-5.1 mmol/L Chloride Level 106 101-111 mmol/L Carbon Dioxide Level 30 21-32 mmol/L Blood Urea Nitrogen 13 7-18 mg/dL Creatinine 0.8 0.5-1.3 mg/dL Glomerular Filtration Rate Calc 86 >90 mL/min Random Glucose 95 70-105 mg/dL Hemoglobin A1c 5.4 4.0-6.0 % Estimated Average Glucose (eAG) 108 70-126 mg/dL Total Calcium 10.5 H 8.5-10.1 mg/dL Troponin I High Sensitivity 29 4-75 ng/L Thyroid Stimulating Hormone (TSH) 1.26 # 0.36-3.74 uIU/mL Coagulation Labs: Test 07/01/25 08:44 Range/Units Prothrombin Time 14.2 H 9.6-11.6 SEC Prothromb Time International Ratio 1.38 H 0.85-1.15 Activated Partial Thromboplast Time 33.6 26.3-35.5 SEC Diagnostics / Radiology: Impression and Plan: Atrial fibrillation with rapid ventricular response Hypertension Chronic anticoagulation with Xarelto with previous cardiac ablation, Symptomatic bradycardia Normal Lexiscan Cardiolite stress test in 12/2023 2D echocardiogram on 03/22/2023 with an EF of 50-55% with stage II diastolic dysfunction and moderate MR History of left lower extremity DVT in 01/2015 RLS Atrial fibrillation with rapid ventricular response EKG on admission demonstrated atrial fibrillation with a heart rate of 111bpm Bedside telemetry currently demonstrating normal sinus rhythm with a heart rate of 62 bpm Upon further investigation, the patient may have missed approximately 3-4 days of the morning dose of propafenone as they were not in his AM medication boxes, but were in the PM medication boxes -Obtain EKG -Resume home Propafenone HCL 225 mg b.i.d. and Xarelto 20 mg q.h.s. Hypertension Reported home systolic BP 150 to 180s Admits to compliance with home medications -Continue clonidine 0.1 mg b.i.d. and pharmacy interchange for telmisartan 80 mg p.o. daily which will be Losartan 100mg daily -Trend BP Case has been discussed extensively with myself Dr. Sims and I would like to keep patient in the hospital 1 more day to make sure he maintains a sinus rhythm before discharge. Propafenone will be administered here in the hospital as prescribed and we will make sure patient continues frequency propafenone twice daily upon discharge. In regards to blood pressure his telmisartan as being replaced by losartan here in the hospital as this is the AR[facility] of utilized by [facility] we will get him back to his home dosing and medication upon discharge. Probable discharge in a.m.. EMANUEL AVILEZ Jul 01, 2025 15:14 POP SIMS MD Jul 01, 2025 18:31
--- NOTE | 2025-07-01 15:37 | NUR ---
DCP:HOME Pt currently lives with dgt [place] [phone]. pt does not have any DME, home health, or provider services. PT states that he is able to complete ADLs independently. PCP is Gena Kasper and uses [facility] for any RX needs. At [place] pt will want to go home and family can assist with transportation. Addendum: 07/01/25 at 1538 by THAI GOTTI SS Amended: Links added.
--- NOTE | 2025-07-01 16:42 | EKG ---
[facility] Test Date: 2025-07-01 Test Time: 16:38:48 Pat Name: TALYA PEREZ Department: EDHIP Room: ED 18 Gender: M Rn Clinical Research: 0723 : 1935 Requested By: EMANUEL AVILEZ Order Number: [id number] Reading MD: Pop Sims Measurements Intervals Sebastian Rate: 56 P: 0 RI: 79 QRS: -65 QRSD: 118 T: 69 QT: 440 QTc: 421 Interpretive Statements Sinus rhythm Ventricular premature complex Left anterior fascicular block LVH with secondary repolarization abnormality Compared to ECG 07/01/2025 08:31:31 Atrial fibrillation no longer present Q waves no longer present Electronically Signed On 07-01-2025 18:39:37 CDT by Pop Sims Please click the below link to view image of tracing.
[2025-07-01] MEDS: RIVAROXABAN 20 MG TABLET PO SCH (17:00)
--- NOTE | 2025-07-01 17:30 | NUR ---
PT TOOK XARELTO THIS MORNING
--- NOTE | 2025-07-01 18:18 | HMCSR ---
APPROVED REPORT EXAM: Two-dimensional and M-mode echocardiogram with Doppler and color Doppler. INDICATION ICD: Atrial fibrillation 2D Dimensions RVDd4.2 cmLVEF(%)50.1 (>50%)LVED Vol(simp.)224.0 mL IVSd1.1 (0.7-1.1cm)FS(%)26 %LVES Vol(simp.)130.0 mL LVDd6.0 (3.8-5.6cm)LA (2D)5.9 (1.6-4.0cm)LVEF(%, simp.)42 % PWd1.4 (0.7-1.1cm)Ao Root(2D)3.2 (2.0-3.7cm)LA ESV INDEX (BP)59.41 mL/m2 IVSs1.1 cmLVOT diam2.4 (1.8-2.4cm) LVDs4.4 (2.5-4.0cm)IVC diam2.7 cm PWs1.9 cm Deformation Strain Apical 4-14.3 % Apical 2-14.2 % Apical 3-14.1 % Global Strain-14.2 % M-Mode Dimensions EPSS1.2 cm LA (MM)5.9 (1.6-4.0cm) Ao Root(MM)3.1 (2.0-3.7cm) Aortic Valve AoV Vmax1.7 m/Dwayne Peak GR11.6 mmHgLVOT Vmax0.8 m/s AoV VTI0.4 mAo Mean GR7.1 mmHgLVOT VTI0.20 m JENNYFER (VMAX)2.23 cm2AVA (VTI) 2.5 cm2 Mitral Valve MV E Vmax69.6 cm/sDECEL Pcax052 msMR FXE735 cm2 MV A Vmax78.3 cm/sP 1/2 T47 ms E/A ratio0.9MVA (PHT)4.7 cm2 TDI E/E' Gzbdpz41.2E/E' Nivbdhk45.2 Medial E' Peak V2.66 cm/sLateral E' Peak V4.91 cm/s Pulmonary Valve PV Vmax1.1 m/sPV VTI0.26 mPV Mean GR2.4 mmHg PV Peak GR5.2 mmHg Tricuspid Valve TR Vmax2.0 m/sRAP (EST) 15 guFiOEXN40.7 mmHg TR Peak GR16.7 mmHg Left Ventricle The left ventricle is severely dilated. GLS -14.0% Mild global hypokinesis Borderline concentric lef t ventricular hypertrophy. LVEF is 40-45%. 3D volume EF 43% Stage II, diastolic dysfunction. Right Ventricle The right ventricle is mildly dilated. The right ventricular systolic function is normal. Atria The left atrium is severely dilated. LASVI 59mL/m2 The right atrium is moderately dilated. Aortic Valve Aortic valve is trileaflet and opens well. No aortic regurgitation is present. There is no aortic lauren vular stenosis. Mitral Valve The mitral valve is normal in structure. There is mild mitral valve regurgitation noted. There is no mitral valve stenosis. Tricuspid Valve The tricuspid valve is normal in structure. There is trace of tricuspid valve regurgitation noted. Pulmonic Valve The pulmonary valve is normal in structure. There is no pulmonic valvular regurgitation. Great Vessels The aortic root is normal in size. IVC is dilated and collapses <50% with inspiration. Pericardium Trace to small pericardial effusion. No echo indications of pericardial tamponade. Other Information Quality : Technically difficult study due to body habitus Conclusion LVEF is 40-45%. 3D volume EF 43% Stage II, diastolic dysfunction. GLS -14.0% Mild global hypokinesis There is mild mitral valve regurgitation noted.
[2025-07-01] MEDS: PROPAFENONE HCL 150 MG TABLET PO SCH (21:09)
[2025-07-01] MEDS: FAMOTIDINE 20MG VIAL IV SCH (21:10)
--- NOTE | 2025-07-01 22:45 | NUR ---
REPORT GIVEN TO AIRAM MELGAR.
[2025-07-01 22:50] VITALS: BP 175/91; PULSE 66; RESP 22; TEMP 97.8
[2025-07-01 23:46] VITALS: BP 158/81; PULSE 58
[2025-07-02 03:09] VITALS: BP 158/78; PULSE 50; RESP 20; TEMP 97.5
[2025-07-02 07:27] LABS: IMMATURE GRANULOCYTE ABSOLUTE 0.00 K/uL (0-1); NUCLEATED RED BLOOD CELLS 0.0 % (0.0-0.19); PLATELET COUNT (AUTO) 147 K/uL (130-400); RED BLOOD CELL COUNT(AUTO) 3.85 MIL/uL (4.50-6.20); RED CELL DISTRIBUTION WIDTH 14.8 % (11.0-15.5); WHITE BLOOD COUNT (AUTO) 4.5 K/uL (4.8-10.8)
[2025-07-02 07:31] LABS: CREATININE 0.9 mg/dL (0.5-1.3); GLOMERULAR FILTR. RATE CALC 83.0 mL/min (>90); GLUCOSE,RANDOM 92.0 mg/dL (70-105); SODIUM SERUM 142.0 mmol/L (136-145); UREA NITROGEN, BLOOD 13.0 mg/dL (7-18)
[2025-07-02 07:35] VITALS: BP 180/84; PULSE 60; RESP 18; TEMP 98.9
[2025-07-02 08:42] VITALS: O2SAT 93
[2025-07-02] MEDS: TERAZOSIN 5MG CAP PO SCH (08:42)
--- NOTE | 2025-07-02 09:03 | PN ---
[facility] [address] CARDIOLOGY PROGRESS NOTE Date Patient Seen: Jul 02, 2025 Time of Visit: 08:55 Interval History: This is an 89-year-old white male with a past medical history of hypertension, paroxysmal atrial fibrillation on antiarrhythmic therapy with propafenone and chronic anticoagulation with Xarelto, status post prior cardiac ablation, intermittent bradycardia, normal Lexiscan Cardiolite stress test in 12/2023, and normal LV systolic function with an LVEF of 50-55% and stage II diastolic dysfunction, moderate MR by prior 2D echocardiogram on 03/22/2023, history of left lower extremity DVT in 01/2015, and glaucoma who presented to the ED with complaints palpitations which he described as flutters and elevated blood pressure over 3 days prior to admission. He also complained of weakness. He was found to be in atrial fibrillation with moderate ventricular response of 111 beats per minute. Upon further questioning, the patient had only been taking his propafenone daily and was missing his p.m. dose. His propafenone has been restarted and overnight, he is back in a normal sinus rhythm with sinus bradycardia nocturnally into 43 beats per minute. This morning, he offers no complaints of chest pain, palpitations, orthopnea, PND. His blood pressure has been elevated but he is on hospital formulary of losartan and not his usual telmisartan 80 mg daily. Physical Examination: GENERAL: No acute distress. HEAD: Normal with no signs of head trauma. EYES: PERRLA, EOMI, conjunctiva and sclera normal. NECK: Supple without JVD. There is no tenderness, lymphadenopathy, or masses. No thyromegaly. Normal carotid upstrokes without bruits. LUNGS: Clear breath sounds bilaterally. No wheezes, or rhonchi. HEART: Normal rate and rhythm. Normal S1 and S2 without murmurs, gallop or rub. VASC: Peripheral pulses +2 bilaterally. EXT: No clubbing, cyanosis or edema. NEURO: Awake, alert, and oriented x3. No focal neurological deficits noted. Laboratory: Hematology Labs: Test 07/02/25 07:10 Range/Units White Blood Count 4.5 L 4.8-10.8 K/uL Red Blood Count 3.85 L 4.50-6.20 MIL/uL Hemoglobin 11.4 L 14.0-18.0 g/dL Hematocrit 35.0 L 42-54 % Mean Corpuscular Volume 90.9 79-99 fL Mean Corpuscular Hemoglobin 29.6 27.0-33.0 pg Mean Corpuscular Hemoglobin Concent 32.6 32.0-36.0 g/dL Red Cell Distribution Width 14.8 11.0-15.5 % Platelet Count 147 130-400 K/uL Mean Platelet Volume 10.3 7.5-10.5 fL Immature Granulocyte % (Auto) 0.0 0-1 % Neutrophils (%) (Auto) 52.0 40.0-77.0 % Lymphocytes (%) (Auto) 32.1 21.0-51.0 % Monocytes (%) (Auto) 9.7 3.0-13.0 % Eosinophils (%) (Auto) 5.3 0.0-8.0 % Basophils (%) (Auto) 0.9 0.0-5.0 % Neutrophils # (Auto) 2.4 1.8-7.7 K/uL Lymphocytes # (Auto) 1.5 1.0-4.8 K/uL Monocytes # (Auto) 0.4 0.1-1.0 K/uL Eosinophils # (Auto) 0.24 0.00-0.70 K/uL Basophils # (Auto) 0.04 0.00-0.20 K/uL Absolute Immature Granulocyte (auto 0.00 0-1 K/uL Nucleated Red Blood Cells 0.0 0.0-0.19 % Chemistry Labs: Test 07/02/25 07:10 07/01/25 08:44 Range/Units Sodium Level 142 136-145 mmol/L Potassium Level 3.7 3.5-5.1 mmol/L Chloride Level 106 101-111 mmol/L Carbon Dioxide Level 30 21-32 mmol/L Blood Urea Nitrogen 13 7-18 mg/dL Creatinine 0.9 0.5-1.3 mg/dL Glomerular Filtration Rate Calc 83 >90 mL/min Random Glucose 92 70-105 mg/dL Total Calcium 9.8 8.5-10.1 mg/dL Hemoglobin A1c 5.4 4.0-6.0 % Estimated Average Glucose (eAG) 108 70-126 mg/dL Troponin I High Sensitivity 29 4-75 ng/L Thyroid Stimulating Hormone (TSH) 1.26 # 0.36-3.74 uIU/mL Coagulation Labs: Test 07/01/25 08:44 Range/Units Prothrombin Time 14.2 H 9.6-11.6 SEC Prothromb Time International Ratio 1.38 H 0.85-1.15 Activated Partial Thromboplast Time 33.6 26.3-35.5 SEC Diagnostics / Radiology: 2D echocardiogram 07/01/2025: Conclusion LVEF is 40-45%. 3D volume EF 43% Stage II, diastolic dysfunction. GLS -14.0% Mild global hypokinesis There is mild mitral valve regurgitation noted. Bilateral lower extremity venous Doppler study 07/01/2025: FINDINGS: DEEP VEINS: The common femoral, superficial femoral, and popliteal veins are echolucent and compressible. There is normal color Doppler flow throughout. The visualized calf veins appear patent. SOFT TISSUES: No popliteal fossa cyst or other abnormalities. IMPRESSION: 1. No deep venous thrombosis in bilateral lower extremities. Impression and Plan: Paroxysmal Atrial fibrillation with rapid ventricular response in the setting of missing his PM propafenone doses times one-week Long-term anticoagulation with Xarelto History of prior cardiac ablation: -the patient is now back in a normal sinus rhythm with nocturnal sinus bradycardia to 43 beat per minute range -he will continue current propafenone ER 225 mg p.o. b.i.d. -ambulate and observe heart rate response and if stable, cleared for discharge home from cardiology standpoint -arrange outpatient follow-up with Lex Bettencourt PA-C in 1-2 weeks Hypertension: -transitioned back to his home telmisartan 80 mg p.o. daily -continue clonidine -patient will monitor blood pressure at home over the next week and bring readings to the office on follow-up visit with Lex Bettencourt PA-C in 1-2 weeks History of intermittent bradycardia History of left lower extremity DVT in 01/2015 PHYSICIAN ATTESTATION OF PHYSICIAN YARN CLEANER DOCUMENTATION: I attest that I was physically present for the duong portions of the service and evaluated the patient with the Physician Hydrant Setter, and I reviewed and discussed the case with the Physician Hydrant Setter and made modifications to the Physician Hydrant Setter's findings and plans of care as documented above ELEANOR HUNTER Jul 02, 2025 09:03 LATESHA ACEVEDO MD Jul 03, 2025 08:55
[2025-07-02 11:27] VITALS: BP 141/74; PULSE 48; RESP 18; TEMP 98.9
--- NOTE | 2025-07-02 15:50 | NUR ---
DISCHARGE PT PIV DC'D PT VERBALIZED UNDERSTANDING OF DISCHARGE INSTRUCTIONS PT GATHERED AND TOOK ALL BELONGINGS PT HAD NO FURTHER QUESTIONS AT TIME OF DISCHARGE PT DAUGHTER AT BEDSIDE
--- NOTE | 2025-07-02 16:29 | DS ---
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 Patient states he noted that he was having palpitations which started today. He felt his heart was beating fast. He denied any chest pain with palpitations or with exertion. Denied any fever, chills, cough, shortness breath, abdominal pain, nausea and vomiting. Patient's daughter states that they have noticed that his blood pressure has been running high recently. His systolics have been noted to run between 150s to 180s. Patient states he has been compliant with his home medications. He is noted to be on telmisartan, clonidine for blood pressure. Additionally he has also noted on amlodipine but patient is unsure if he is still taking that medication. He takes propafenone for atrial fibrillation. He was previously on metoprolol but he is currently not taking the medication. He follows Dr. Galvin as outpatient. Patient denied any falls, syncopal episode. Daughter has noted a lower extremity swelling bilaterally. Secondary to non improving symptoms patient thereafter came to the hospital for further evaluation. Patient took his antihypertensives in the morning and his home dose Xarelto. Labs in the ED were notable for white count of 4.8, hemoglobin was 12.8, platelet count was 175 K, sodium was 142, potassium was 4.2, creatinine was 0.8, troponin was negative x1 On presentation to the ED patient's blood pressure was 150/96, temperature was 98.8, heart rate was 55. Patient had a EKG done which showed atrial fibrillation with noted to be 111. When seen at bedside patient's heart rate had improved in the 50s. HOSPITAL COURSE During the course of the hospitalization the patient was admitted to the medical floor with telemetry, cardiology consultation requested, recommendations as follows: Paroxysmal Atrial fibrillation with rapid ventricular response in the setting of missing his PM propafenone doses times one-week Long-term anticoagulation with Xarelto History of prior cardiac ablation: -the patient is now back in a normal sinus rhythm with nocturnal sinus bradycardia to 43 beat per minute range -he will continue current propafenone ER 225 mg p.o. b.i.d. -ambulate and observe heart rate response and if stable, cleared for discharge home from cardiology standpoint -arrange outpatient follow-up with Lex Bettencourt PA-C in 1-2 weeks Hypertension: -transitioned back to his home telmisartan 80 mg p.o. daily -continue clonidine -patient will monitor blood pressure at home over the next week and bring readings to the office on follow-up visit with Lex Bettencourt PA-C in 1-2 weeks History of intermittent bradycardia History of left lower extremity DVT in 01/2015 At the time of my visit the patient alert oriented x3, hemodynamically stable, denies dizziness, no headache, no blurry vision, no chest pain, no shortness a breath, no nausea, no vomiting, no abdominal discomfort. He would like to go home today. Case discussed with the RN, patient already walking around, heart rate controlled, blood pressure still with systolic of 140. Physical Examination: GENERAL: No acute distress. HEAD: Normal with no signs of head trauma. EYES: PERRLA, EOMI, conjunctiva and sclera normal. NECK: Supple without JVD. There is no tenderness, lymphadenopathy, or masses. No thyromegaly. Normal carotid upstrokes without bruits. LUNGS: Clear breath sounds bilaterally. No wheezes, or rhonchi. HEART: Normal rate and rhythm. Normal S1 and S2 without murmurs, gallop or rub. VASC: Peripheral pulses +2 bilaterally. EXT: No clubbing, cyanosis or edema. NEURO: Awake, alert, and oriented x3. No focal neurological deficits noted. Clerical Administrator(s): Cardiology Assessment/Plan: Final diagnosis Paroxysmal AFib with RVR POA Hypertension Hyperlipidemia History of chronic anticoagulation with Xarelto History of leukemia Discharge Instructions: Patient to be discharged home today, to follow with PCP and Cardiology as an outpatient and to return to the hospital if condition changes, patient agreed with plan and understood the information provided. Home Medications: Reported Medications Cholecalciferol (Vitamin D3) (Vitamin D3) 125 Mcg (5000 Unit) Tablet, 1 TAB PO DAILY for 30 Days, #30 TAB 0 Refills 07/01/25 Vitamin B Complex (B Complex) 1 Cap Capsule, 1 CAP PO DAILY for 30 Days, #30 CAP 0 Refills 07/01/25 Propafenone HCl (Propafenone HCl) 225 Mg Tablet, 1 TAB PO BID for 30 Days, #60 TAB 0 Refills 07/01/25 Multivits-Min/FA/Lycopene/Lut (Centrum Silver Tablet) 0.4 Mg-300 Mcg-250 Mcg Tablet, 1 TAB PO DAILY for 30 Days, #30 TAB 0 Refills 07/01/25 Vit C/E/Zn/Coppr/Lutein/Zeaxan (Preservision Areds 2 Chew Tab) 250MG-90MG Tab.chew, 1 EACH PO BID, TAB.CHEW 07/01/25 Clonidine HCl (Clonidine HCl) 0.1 Mg Tablet, 1 TAB PO BID for 30 Days, #30 TAB 0 Refills 07/01/25 Telmisartan (Telmisartan) 80 Mg Tablet, 1 TAB PO DAILY for 30 Days, #30 TAB 0 Refills 07/01/25 Folic Acid (Folvite) 1 Mg Tab, 1 TAB PO DAILY for 30 Days, #30 TAB 0 Refills 07/01/25 Rivaroxaban (Xarelto) 20 Mg Tablet, 20 MG PO HS, TAB 03/22/23 Finasteride (Finasteride) 5 Mg Tablet, 5 MG PO DAILY, TAB 06/11/15 Terazosin HCl (Terazosin HCl) 10 Mg Capsule, 10 MG PO DAILY, CAP 06/11/15 Discontinued Reported Medications Hydrochlorothiazide (Hydrochlorothiazide) 25 Mg Tablet, 25 MG PO DAILY, TAB 03/22/23 Magnesium Citrate and Oxide (Magnesium) 250 Mg Capsule, 250 MG PO DAILY, CAP 03/22/23 Losartan Potassium (Losartan Potassium) 100 Mg Tablet, 100 MG PO DAILY, TAB 03/22/23 Fexofenadine HCl (Fexofenadine HCl) 180 Mg Tablet, 180 MG PO DAILY PRN for NASAL CONGESTION, TAB 03/22/23 Ubidecarenone (Coq10) 50 Mg Tab.chew, 100 MG PO DAILYBKFST, TAB.CHEW 03/22/23 Iron (Iron) 18 Mg Tablet, 27 MG PO DAILY, TAB 03/22/23 Vit A,C & E/Lutein/Minerals (Ocuvite Tablet) 1 Each Tablet, 1 EACH PO DAILY, TAB 06/11/15 Discontinued Scripts Cephalexin Monohydrate (Keflex) 500 Mg Cap, 500 MG PO TID for 7 Days, #21 CAP Prov:SANJEEV MORENO MD 07/29/23 Sodium Chloride/Aloe Vera (Red Jacket Saline Nasal Gel Howell) 22 Ml Howell, 22 ML NS BID for 7 Days, #60 SPRAY Prov:SANJEEV MORENO MD 07/29/23 Metoprolol Succinate (Metoprolol Succinate) 25 Mg Tab.er.24h, 25 MG PO DAILY, #30 TAB 3 Refills Prov:SELAM FERNÁNDEZ MD 03/23/23 Time spent arranging discharge: 31-60 minutes NATASHA MIRANDA MD Jul 02, 2025 16:29
== END 2025-07-02 16:00 | disposition home or self-care (01) ==
LOC: EDH 07:57 → EDHIP 11:06 → INTOOBSV 11:06 → UNDOADMOB 11:06 → 3AH 22:44 → EDHIP 22:44 → 3AH 07-02 12:05
PROVIDERS: ADMIT Internal Medicine; ATTEND Internal Medicine
DX: I48.0 Paroxysmal atrial fibrillation (principal); R00.2 Palpitations; R00.1 Bradycardia, unspecified; R53.1 Weakness; I10 Essential (primary) hypertension; E78.5 Hyperlipidemia, unspecified; R60.0 Localized edema; Z79.01 Long term (current) use of anticoagulants; Z79.899 Other long term (current) drug therapy; Z85.6 Personal history of leukemia; Z86.718 Personal history of other venous thrombosis and embolism; Z98.890 Other specified postprocedural states
CPT/HCPCS: 99285; 83036; 84443; 84484; 80048 ×2; 85025 ×2; 85610; 85730; 81001; 36415 ×2; 71045; 93306; 93356; 93970; 76376; 96374; 93005 ×2; 96376; J3490 ×2; G0378 ×4; J1308